=== PATIENT | female | born 1995 | race Caucasian/White ===

== ENCOUNTER 2020-11-11 03:16 | Emergency (ER) | payer BC ==
[2020-11-11] MEDS ORDERED: Metoclopramide HCl 10 MG/2 ML VIAL ONE (03:37)
[2020-11-11] MEDS ORDERED: Ketorolac Tromethamine 30 MG/ML VIAL ONE (03:37)
[2020-11-11] MEDS ORDERED: diphenhydrAMINE 50 MG/ML VIAL ONE (03:37)
== END 2020-11-11 05:15 | disposition home or self-care (01) ==
LOC: ERS 03:16
DX: R51.9 Headache, unspecified (principal)
CPT/HCPCS: 96365; 96375; J1200; J1885; J2765